=== PATIENT | female | born 1950 | race Caucasian/White ===

== ENCOUNTER 2019-02-22 09:38 | Emergency (ER) | payer OTHER ==
[2019-02-22] MEDS ORDERED: NA CHLORIDE 0.9% 1,000 ML ONE ×2 (10:33→12:19)
--- NOTE | 2019-02-22 10:44 | RAD REPORT ---
EXAM DESCRIPTION: RAD - Chest Pa And Lat (2 Views) - 02/22/2019 10:29 am CLINICAL HISTORY: COUGH Chest pain. COMPARISON: No comparisons FINDINGS: Emphysematous changes are present throughout the lungs. The heart is normal in size. No di splaced fractures. IMPRESSION: Diffuse COPD.
[2019-02-22 10:50] LABS: Urine Bacteria <20 /HPF (<20); Urine Culture Reflex Order NOT NEEDED; Urine RBC <5 /HPF (NONE SEEN)
[2019-02-22 10:51] LABS: Urine Blood 1+ (NEG); Urine Glucose NEGATIVE (NEG); Urine Protein 2+ (NEG); Urine Specific Gravity 1.025 (1.005-1.030)
[2019-02-22 11:11] LABS: Absolute Lymphocytes (CBC) 0.4 K/uL (0.7-4.9); Absolute Monocytes 0.2 K/uL (0.1-1.3); Absolute Neutrophil 6.1 K/uL (1.8-8.0); Basophils % 0.3 % (0-1.3); Eosinophils % 3.4 % (0-4.4); Hematocrit 42.3 % (36.0-45.0); Lymphocytes % 5.7 % (15.3-44.8); MPV 8.5 fL (7.6-11.3); Monocytes % 3.1 % (3.3-12.3); RBC Red Blood Cell Count 4.29 M/uL (3.86-4.86)
[2019-02-22 11:30] LABS: ALT/SGPT 69 U/L (12-78); AST/SGOT 112 U/L (15-37); Albumin 3.4 g/dL (3.4-5.0); Alkaline Phosphatase 77 U/L (45-117); BUN Blood Urea Nitrogen 24 mg/dL (7-18); Bicarbonate 20 mmol/L (21-32); Bilirubin Direct < 0.1 mg/dL (0-0.2); Bilirubin Total 0.2 mg/dL (0.2-1.0); Glucose Level 101 mg/dL (74-106); Lipase 62 U/L (73-393); Potassium 3.9 mmol/L (3.5-5.1); Protein, Total 7.4 g/dL (6.4-8.2); Sodium Level 132 mmol/L (136-145)
--- NOTE | 2019-02-22 12:22 | RAD REPORT ---
EXAM DESCRIPTION: CT - Abdomen Pelvis Wo Contrast - 02/22/2019 11:59 am CLINICAL HISTORY: Abdominal pain dysuria COMPARISON: None TECHNIQUE: Computed axial tomography of the abdomen and pelvis was obtained. IV and oral contrast we re not requested. All CT scans are performed using dose optimization technique as appropriate and may include automated exposure control or mA/KV adjustment according to patient size. FINDINGS: The evaluation of solid organs, vessels and bowel is limited secondary to the lack of con trast administration. A 12 millimeter low-density mass in the liver is nonspecific without IV contrast but probably represe nts a cyst Spleen, pancreas, adrenals and kidneys appear grossly normal. The appendix is normal. There is no evidence of diverticulitis. Moderate amount of stool is present throughout colon IMPRESSION: Moderate amount stool present throughout the colon
[2019-02-22 12:43] LABS: Platelet Estimate ADEQ; Urine White Blood Cell Casts OK
[2019-02-22 12:44] LABS: Blood Morphology Comment NOT SEEN (NOT SEEN)
--- NOTE | 2019-02-22 13:11 | EDPHYS ---
Physician Documentation [facility] Name: Alix Carr Age: 68 yrs Sex: Female : 1950 Arrival Date: 02/22/2019 Time: 09:43 Bed 8 Private MD: ED Physician Cliff Cabrera HPI: 02/22 10:25 This 68 yrs old Female presents to ER via Wheelchair with complaints of pm1 Urinary Problem. 10:25 The patient presents with urinary symptoms, dysuria. Onset: The symptoms/episode pm1 began/occurred 10 day(s) ago. Modifying factors: The symptoms are alleviated by antibiotics but returned after stopping them after resolution of symptoms. Associated signs and symptoms: Pertinent positives: Fever yesterday and burning with urination yesterday. No fever today. No urinary symptoms today, Pertinent negatives:. Severity of symptoms: in the emergency department the symptoms have resolved. Onset: The symptoms/episode began/occurred 10 day(s) ago. Associated signs and symptoms: Pertinent positives: cough, Pertinent negatives: abdominal pain. The patient has not experienced similar symptoms in the past. The patient has not recently seen a physician, and does not have an established primary care provider. Patient with urinary symptoms that started 10 days ago. Patient took Bactrim DS given to her by her for possibly 4 - 5 days. Her symptoms improved so she stopped taking them. Patient then started taking Cipro 500 mg BID yesterday morning. She has taken 3 total doses. Yesterday she had burning with urination and fever that has resolved today. Patient does not have any flank or abdominal pain. Historical: - Allergies: 10:10 No Known Allergies; ph - Immunization history:: Adult Immunizations unknown. - Social history:: Smoking status: Patient/guardian denies using tobacco. - Ebola Screening: : No symptoms or risks identified at this time. ROS: 10:25 Positive for burning with urination yesterday, Negative for flank pain. pm1 10:25 Eyes: Negative for injury, pain, redness, and discharge. 10:25 ENT: Negative for injury, pain, and discharge, Neck: Negative for injury, pain, and swelling, Cardiovascular: Negative for chest pain, palpitations, and edema. 10:25 Abdomen/GI: Negative for abdominal pain, nausea, vomiting, diarrhea, and constipation, Back: Negative for injury and pain, MS/Extremity: Negative for injury and deformity, Skin: Negative for injury, rash, and discoloration, Neuro: Negative for headache, weakness, numbness, tingling, and seizure. 10:25 Constitutional: Positive for fever, yesterday that has resolved, Negative for 10:25 Respiratory: Positive for cough, Negative for shortness of breath, sputum production, wheezing. Exam: 10:25 Constitutional: This is a well developed, well nourished patient who is awake, alert, pm1 and in no acute distress. Head/Face: Normocephalic, atraumatic. Eyes: Pupils equal round and reactive to light, extra-ocular motions intact. Lids and lashes normal. Conjunctiva and sclera are non-icteric and not injected. Cornea within normal limits. Periorbital areas with no swelling, redness, or edema. ENT: Nares patent. No nasal discharge, no septal abnormalities noted. Tympanic membranes are normal and external auditory canals are clear. Oropharynx with no redness, swelling, or masses, exudates, or evidence of obstruction, uvula midline. Mucous membranes moist. Neck: Trachea midline, no thyromegaly or masses palpated, and no cervical lymphadenopathy. Supple, full range of motion without nuchal rigidity, or vertebral point tenderness. No Meningismus. Chest/axilla: Normal chest wall appearance and motion. Nontender with no deformity. No lesions are appreciated. Cardiovascular: Regular rate and rhythm with a normal S1 and S2. No gallops, murmurs, or rubs. Normal PMI, no JVD. No pulse deficits. Respiratory: Lungs have equal breath sounds bilaterally, clear to auscultation and percussion. No rales, rhonchi or wheezes noted. No increased work of breathing, no retractions or nasal flaring. Abdomen/GI: Soft, non-tender, with normal bowel sounds. No distension or tympany. No guarding or rebound. No evidence of tenderness throughout. Back: No spinal tenderness. No costovertebral tenderness. Full range of motion. Skin: Warm, dry with normal turgor. Normal color with no rashes, no lesions, and no evidence of cellulitis. MS/ Extremity: Pulses equal, no cyanosis. Neurovascular intact. Full, normal range of motion. 10:25 Neuro: Orientation: is normal, Motor: is normal, Sensation: is normal, no obvious gross deficits, Gait: is steady, at a normal pace, without difficulty. Vital Signs: 10:08 BP 90 / 53; Pulse 70; Resp 16 S; Temp 98.0(O); Pulse Ox 99% on R/A; Weight 56.7 kg; iw Height 5 ft. 6 in. (167.64 cm); Pain 0/10; 11:04 BP 103 / 64; Pulse 60; Resp 18; Pulse Ox 100% on R/A; ph 12:13 BP 109 / 67; Pulse 62; Resp 18; Pulse Ox 97% on R/A; Pain 0/10; ph 13:29 BP 112 / 68; Pulse 64; Resp 18; Temp 98.0; Pulse Ox 98% on R/A; ph 10:08 Body Mass Index 20.18 (56.70 kg, 167.64 cm) iw MDM: 10:01 Patient medically screened. pm1 12:28 Data reviewed: vital signs. Data interpreted: Pulse oximetry: on room air is 97 %. pm1 Interpretation: normal. 13:09 Counseling: I had a detailed discussion with the patient and/or guardian regarding: the pm1 historical points, exam findings, and any diagnostic results supporting the discharge/admit diagnosis, lab results, radiology results, the need for outpatient follow up, to return to the emergency department if symptoms worsen or persist or if there are any questions or concerns that arise at home. 02/22 10:13 Order name: Basic Metabolic Panel; Complete Time: 11:48 pm02/22 10:13 Order name: CBC with Diff; Complete Time: 12:47 pm02/22 10:13 Order name: Creatinine for Radiology; Complete Time: 11:48 pm02/22 10:13 Order name: Hepatic Function; Complete Time: 11:48 pm02/22 10:13 Order name: Lipase; Complete Time: 11:48 pm02/22 10:13 Order name: Blood Culture Adult (2) pm02/22 10:13 Order name: Urine Culture pm02/22 10:13 Order name: Urine Microscopic Only; Complete Time: 10:51 pm02/22 10:13 Order name: Flu; Complete Time: 11:48 pm02/22 10:13 Order name: Procalcitonin; Complete Time: 12:09 pm1 02/22 10:13 Order name: Lactate; Complete Time: 11:48 pm1 02/22 10:27 Order name: Urine Dipstick--Ancillary (enter results); Complete Time: 10:53 bd 02/22 11:17 Order name: CBC Smear Scan; Complete Time: 12:47 EDMS 02/22 10:13 Order name: IV Saline Lock; Complete Time: 10:22 pm1 02/22 10:13 Order name: Labs collected and sent; Complete Time: 10:38 pm1 02/22 10:13 Order name: Chest Pa And Lat (2 Views) XRAY; Complete Time: 10:51 pm1 02/22 10:23 Order name: Urine Dipstick-Ancillary (obtain specimen); Complete Time: 10:23 ms 02/22 12:08 Order name: Abdomen ; Complete Time: 12:27 EDMS Administered Medications: 10:50 Drug: NS 0.9% 1000 ml Route: IV; Rate: 1000 ml; Site: right antecubital; ph 12:11 Follow up: Response: No adverse reaction; IV Status: Completed infusion ph 12:11 Drug: NS 0.9% 1000 ml Route: IV; Rate: 1000 ml; Site: right antecubital; ph 13:44 Follow up: Response: No adverse reaction; Marked relief of symptoms; IV Status: ph Completed infusion; IV Intake: 1000ml Disposition: 15:39 Co-signature as Attending Physician, Cliff Cabrera MD I agree with the assessment and debbie plan of care. Disposition: 02/22/19 13:10 Discharged to Home. Impression: Dehydration, Urinary tract infection, site not specified. - Condition is Stable. - Discharge Instructions: Dehydration, Elderly, Urinary Tract Infection, Adult, Antibiotic Medicine, Adult, Rehydration, Elderly. - Prescriptions for Cipro 500 mg Oral Tablet - take 1 tablet by ORAL route every 12 hours for 7 days; 14 tablet. - Medication Reconciliation Form, Thank You Letter, Antibiotic Education, Prescription Opioid Use form. - Follow up: Emergency Department; When: As needed; Reason: Worsening of condition. Follow up: Private Physician; When: 2 - 3 days; Reason: Recheck today's complaints, Continuance of care, Re-evaluation by your physician. - Problem is new. - Symptoms have improved. Signatures: Dispatcher [employer] EDCliff Lord MD MD cha Solis, Maria ms Hall, Patricia, RN RN ph Raul Nails, LUKASZ CHIEF CLINICAL DIETITIAN pm1 Corrections: (The following items were deleted from the chart) 12:08 10:14 Abdomen Pelvis W Con+CT.RAD.BRZ ordered. EDMS EDMS 13:46 13:10 02/22/2019 13:10 Discharged to Home. Impression: Dehydration; Urinary tract ph infection, site not specified. Condition is Stable. Forms are Medication Reconciliation Form, Thank You Letter, Antibiotic Education, Prescription Opioid Use. Follow up: Emergency Department; When: As needed; Reason: Worsening of condition. Follow up: Private Physician; When: 2 - 3 days; Reason: Recheck today's complaints, Continuance of care, Re-evaluation by your physician. Problem is new. Symptoms have improved. pm1
--- NOTE | 2019-02-22 13:11 | ER ---
Nurse's Notes [facility] Name: Alix Carr Age: 68 yrs Sex: Female : 1950 Arrival Date: 02/22/2019 Time: 09:43 Bed 8 Private MD: Diagnosis: Dehydration;Urinary tract infection, site not specified Presentation: 02/22 10:08 Presenting complaint: Patient states: having UTI symptoms since last week, started iw Bactrim last Wednesday the but stopped it after 3-4 days because she was feeling weak, was put on Cipro yesterday, still having weakness and mild pain with urination, also has cough and wheezing, 102.4 temp last night. Transition of care: patient was not received from another setting of care. Onset of symptoms was February 12, 2019. Risk Assessment: Do you want to hurt yourself or someone else? Patient reports no desire to harm self or others. Initial Sepsis Screen: Does the patient meet any 2 criteria? No. Patient's initial sepsis screen is negative. Does the patient have a suspected source of infection? No. Patient's initial sepsis screen is negative. Care prior to arrival: None. 10:08 Method Of Arrival: Wheelchair iw 10:08 Acuity: VAHID 3 iw Historical: - Allergies: 10:10 No Known Allergies; ph - Immunization history:: Adult Immunizations unknown. - Social history:: Smoking status: Patient/guardian denies using tobacco. - Ebola Screening: : No symptoms or risks identified at this time. Screenin:11 Abuse screen: Denies threats or abuse. Denies injuries from another. Nutritional ph screening: No deficits noted. Tuberculosis screening: No symptoms or risk factors identified. Fall Risk None identified. Assessment: 10:12 General: Appears in no apparent distress. comfortable, slender, well groomed, Behavior ph is calm, cooperative, appropriate for age, Reports fever for > 3 days. Pain: Denies pain. Neuro: Level of Consciousness is awake, alert, obeys commands, Oriented to person, place, time, situation, Reports dizziness, upon standing. Cardiovascular: Capillary refill < 3 seconds in bilateral fingers Patient's skin is warm and dry. Respiratory: Reports cough that is Airway is patent Respiratory effort is even, unlabored, Respiratory pattern is regular, symmetrical, Denies shortness of breath. GI: Reports nausea, vomiting, Patient currently denies abdominal pain, vomiting. : Reports urinary frequency, Denies burning with urination, pain lower quadrant(s) in lower back flank(s). Derm: Skin is intact, Skin is pink, warm \T\ dry. Musculoskeletal: Circulation, motion, and sensation intact. Range of motion: intact in all extremities. 11:02 Reassessment: Patient appears in no apparent distress at this time. Patient and/or ph family updated on plan of care and expected duration. Pain level reassessed. Patient is alert, oriented x 3, equal unlabored respirations, skin warm/dry/pink. Pt returned from radiology, resting quietly at this time, denies pain or nausea, awaiting lab and radiology results. 12:12 Reassessment: Patient appears in no apparent distress at this time. Patient and/or ph family updated on plan of care and expected duration. Pain level reassessed. Patient is alert, oriented x 3, equal unlabored respirations, skin warm/dry/pink. Pt resting quietly, eating cookies, tolerating well, at bedside. 13:29 Reassessment: Patient appears in no apparent distress at this time. Patient and/or ph family updated on plan of care and expected duration. Pain level reassessed. Patient is alert, oriented x 3, equal unlabored respirations, skin warm/dry/pink. D/C pending completion of IV fluids. 13:45 Reassessment: Patient appears in no apparent distress at this time. Patient and/or ph family updated on plan of care and expected duration. Pain level reassessed. Patient is alert, oriented x 3, equal unlabored respirations, skin warm/dry/pink. Pt d/c home w/ SO Patient states feeling better. Patient states symptoms have improved. Vital Signs: 10:08 BP 90 / 53; Pulse 70; Resp 16 S; Temp 98.0(O); Pulse Ox 99% on R/A; Weight 56.7 kg; iw Height 5 ft. 6 in. (167.64 cm); Pain 0/10; 11:04 BP 103 / 64; Pulse 60; Resp 18; Pulse Ox 100% on R/A; ph 12:13 BP 109 / 67; Pulse 62; Resp 18; Pulse Ox 97% on R/A; Pain 0/10; ph 13:29 BP 112 / 68; Pulse 64; Resp 18; Temp 98.0; Pulse Ox 98% on R/A; ph 10:08 Body Mass Index 20.18 (56.70 kg, 167.64 cm) iw ED Course: 09:43 Patient arrived in ED. rg4 09:55 Anali Vee, GONZALO is Primary Nurse. ph 10:01 Raul Nails, SHELF DRIER OPERATOR is PHCP. pm1 10:01 Cliff Cabrera MD is Attending Physician. pm1 10:11 Patient has correct armband on for positive identification. Placed in gown. Bed in low ph position. Call light in reach. Side rails up X 1. Pulse ox on. NIBP on. Door closed. Noise minimized. Warm blanket given. Head of bed elevated. 10:12 Triage completed. iw 10:12 Arm band placed on Patient placed in an exam room, on a stretcher. ph 10:25 X-ray completed. Patient tolerated procedure well. mh1 10:27 Chest Pa And Lat (2 Views) XRAY In Process Unspecified. EDMS 10:45 Inserted saline lock: 22 gauge in right antecubital area, using aseptic technique. ph Blood collected. 11:00 Initial lab(s) drawn, by me, sent to lab. First set of blood cultures drawn by me, ph Second set of blood cultures drawn Urine collected: Flu and/or RSV swab sent to lab. 11:56 CT completed. Patient tolerated procedure well. Patient moved to CT via wheelchair. sj Patient moved back from CT. 12:08 Abdomen In Process Unspecified. EDMS 13:45 No provider procedures requiring assistance completed. IV discontinued, intact, ph bleeding controlled, No redness/swelling at site. Pressure dressing applied. Administered Medications: 10:50 Drug: NS 0.9% 1000 ml Route: IV; Rate: 1000 ml; Site: right antecubital; ph 12:11 Follow up: Response: No adverse reaction; IV Status: Completed infusion ph 12:11 Drug: NS 0.9% 1000 ml Route: IV; Rate: 1000 ml; Site: right antecubital; ph 13:44 Follow up: Response: No adverse reaction; Marked relief of symptoms; IV Status: ph Completed infusion; IV Intake: 1000ml Intake: 13:44 IV: 1000ml; Total: 1000ml. ph Outcome: 13:10 Discharge ordered by . pm1 13:46 Discharged to home ambulatory, with significant other. ph 13:46 Condition: improved 13:46 Discharge instructions given to patient, Instructed on discharge instructions, follow up and referral plans. Demonstrated understanding of instructions, follow-up care. 13:46 Patient left the ED. ph Signatures: Dispatcher [employer] EDMS Rachael Moss 1 Monse Paulino Irene, RN RN Anali Vee RN RN ph Marinas, Patrick, LUKASZ SHELF DRIER OPERATOR pm1 Cailin Dueñas rg4
== END 2019-02-22 13:46 | disposition home or self-care (01) ==
LOC: ER 09:38
DX: N39.0 Urinary tract infection, site not specified (principal); E86.0 Dehydration
CPT/HCPCS: 96361; 87040 ×2; 87088; 85025; 80048; 36415; 80076; 83605; 83690; 84145; 87804 ×2; 74176; 71046; 96360; 99284; J7030 ×2; 81003; 81015; 87086